=== PATIENT | male | born 1995 | race Two or more races ===

== ENCOUNTER 2022-10-03 19:59 | Inpatient (IN) | payer MEDICAID ==
[~2022-10-03] VITALS: Ht 162.6 cm; Wt 59.0 kg
--- NOTE | 2022-10-03 20:06 | NUR ---
SHIRAZ. Tamia LOWER LEG PAIN +DEFORMITY WHILE PLAYING SOCCER. 06/18 Pain level. VS stable.
--- NOTE | 2022-10-03 20:23 | NUR ---
SLAB INSPECTOR AT PT'S BEDSIDE
[2022-10-03] MEDS ORDERED: MORPHINE SULFATE INJ 4 MG/ML DISP.SYRIN ONE (20:30)
[2022-10-03] MEDS ORDERED: MORPHINE SULFATE INJ 2 MG/ML DISP.SYRIN IM/IV ONE (20:30)
--- NOTE | 2022-10-03 20:32 | NUR ---
DR HOLLIS ON THE PHONE WITH DR MCCRARY FOR ORTHO CONSULT
--- NOTE | 2022-10-03 20:32 | NUR ---
DR. LAW MOORE AT PT'S BEDSIDE FOR EVAL AND ASSESS LOWER EXTREMITY VIA DOPPLER.
--- NOTE | 2022-10-03 20:41 | NUR ---
COVID ANTIGEN SWAB COLLECTED AND SENT TO LAB
--- NOTE | 2022-10-03 20:55 | NUR ---
IV access established on RFA G#22, on SL, patent and no s/sx of infiltration. Pt tolerated procedure well.
--- NOTE | 2022-10-03 21:09 | NUR ---
Birthing Nurse at bedside
[2022-10-03 21:24] LABS: BASOPHILS % (AUTO) 0.2 % (0.0-2.0); EOSINOPHILS % (AUTO) 0.4 % (0.0-6.0); HEMATOCRIT 43 % (39-51); HEMOGLOBIN 13.9 g/dL (13.5-17.5); LYMPHOCYTES # (AUTO) 1.1 K/uL (0.8-4.8); LYMPHOCYTES % (AUTO) 8.2 % (20.0-44.0); MEAN CORPUSCULAR HGB CONC 33 g/dl (31.0-36.0); MEAN CORPUSCULAR VOLUME 92 fL (80-96); MONOCYTES # (AUTO) 0.6 K/uL (0.1-1.30); MONOCYTES % (AUTO) 4.3 % (2.0-12.0); NEUTROPHILS # (AUTO) 11.9 K/uL (1.8-8.9); NEUTROPHILS % (AUTO) 86.9 % (43.0-81.0); PLATELET COUNT (AUTO) 161 K/uL (150-450); RED BLOOD CELL COUNT(AUTO) 4.67 MIL/uL (4.5-6.0); WHITE BLOOD COUNT (AUTO) 13.6 K/uL (4.3-11.0)
--- NOTE | 2022-10-03 21:35 | NUR ---
PT TAKEN TO CT VIA AZAEL
--- NOTE | 2022-10-03 21:44 | NUR ---
Pt back to via chhaya
[2022-10-03 21:47] LABS: POTASSIUM 3.8 mmol/L (3.5-5.1)
--- NOTE | 2022-10-03 21:47 | NUR ---
epic panel paged
--- NOTE | 2022-10-03 22:16 | NUR ---
report given to judah mireles for miri
--- NOTE | 2022-10-03 22:29 | NUR ---
Pt transported to unit on [facility] with emt at bedside. pt in stable condition for transport.
--- NOTE | 2022-10-03 23:10 | NUR ---
MS FLAT LOCK MACHINE OPERATOR NOTES RECEIVED TELEPHONE REPORT FROM ER STAFF (JOBY). PT CAME TO UNIT VIA GURNEY. PT IS AWAKE, ALERT AND ORIENTED. A/O X4. STABLE ON RA. NO RESPIRATORY DISTRESS NOTED. VITALS TU=330/74, HR= 73, RESP =18, O2 SAT @ 98%. IV ACCESS AT LEFT FA #18, INTACT, FLUSHING WELL. SKIN ASSESSMENT DONE AND PICTURES TAKEN. SAFETY MEASURES GIVEN WITH BED ON LOWEST AND LOCKED POSITION. CALL LIGHT AND TABLE WITHIN REACH. WILL CONTINUE WITH PLAN OF CARE.
[2022-10-03] MEDS ORDERED: ONDANSETRON HCL/PF 4 MG/2 ML VIAL IVP PRN (23:30)
[2022-10-03] MEDS ORDERED: MAGNESIUM HYDROXIDE 30 ML UDC PO PRN (23:30)
[2022-10-03] MEDS ORDERED: ACETAMINOPHEN 325 MG TABLET PO PRN (23:30)
[2022-10-03] MEDS ORDERED: Z GUARD REMEDY 4 OZ OINT TP PRN (23:30)
[2022-10-03] MEDS ORDERED: ZOLPIDEM TARTRATE 5 MG TABLET PO PRN (23:30)
[2022-10-03] MEDS ORDERED: MAG HYDROX/AL HYDROX/SIMETH 30 ML UDC PO PRN (23:30)
[2022-10-04 00:10] VITALS: BP 142/68
[2022-10-04] MEDS: MORPHINE SULFATE INJ 4 MG/ML DISP.SYRIN IV PRN ×2 (00:49→08:54)
--- NOTE | 2022-10-04 00:50 | NUR ---
RN NOTES PATIENT VERBALIZED PAIN WITH 8 PAIN LEVEL. GAVE MORPHINE FOR SEVERE PAIN. WILL CONTINUE TO MONITOR.
[2022-10-04] MEDS: HYDROCODONE/APAP 5/325MG TABLET PO PRN ×3 (03:18→18:38)
--- NOTE | 2022-10-04 03:20 | NUR ---
RN NOTES PATIENT VERBALIZED PAIN WITH PAIN LEVEL 9. NORCO GIVEN. MORPHINE IS NOT DUE YET. WILL CONTINUE TO MONITOR.
--- NOTE | 2022-10-04 05:41 | NUR ---
EKG completed and results given to financial sales professional Grace.
[2022-10-04 05:49] LABS: BASOPHILS % (AUTO) 0.3 % (0.0-2.0); EOSINOPHILS % (AUTO) 0.9 % (0.0-6.0); HEMATOCRIT 41 % (39-51); HEMOGLOBIN 13.6 g/dL (13.5-17.5); LYMPHOCYTES # (AUTO) 1.3 K/uL (0.8-4.8); LYMPHOCYTES % (AUTO) 13.4 % (20.0-44.0); MEAN CORPUSCULAR HGB CONC 33 g/dl (31.0-36.0); MEAN CORPUSCULAR VOLUME 91 fL (80-96); MONOCYTES # (AUTO) 0.9 K/uL (0.1-1.30); MONOCYTES % (AUTO) 8.5 % (2.0-12.0); NEUTROPHILS # (AUTO) 7.7 K/uL (1.8-8.9); NEUTROPHILS % (AUTO) 76.9 % (43.0-81.0); PLATELET COUNT (AUTO) 160 K/uL (150-450); RED BLOOD CELL COUNT(AUTO) 4.48 MIL/uL (4.5-6.0)
[2022-10-04 06:24] LABS: CALCIUM, SERUM 9.1 mg/dL (8.5-10.1); CREATININE 1.1 mg/dL (0.6-1.3); MAGNESIUM 2.1 mg/dL (1.8-2.4); PHOSPHORUS 4.2 mg/dL (2.5-4.9); POTASSIUM 3.8 mmol/L (3.5-5.1)
--- NOTE | 2022-10-04 07:55 | NUR ---
MS RN CLOSING NOTES PATIENT IS AWAKE, ALERT AND ORIENTED. A/O X4. STABLE ON RA. NO RESPIRATORY DISTRESS NOTED. IV ACCESS AT LEFT FA #22, INTACT, FLUSHING WELL. SKIN ASSESSMENT DONE AND PICTURES TAKEN. PAIN MEDICATIONS GIVEN ACCORDINGLY. SAFETY MEASURES GIVEN WITH BED ON LOWEST AND LOCKED POSITION. CALL LIGHT AND TABLE WITHIN REACH. WILL ENDORSE TO THE NEXT SHIFT.
[2022-10-04 08:00] VITALS: BP 109/73
--- NOTE | 2022-10-04 08:09 | NUR ---
RN OPENING NOTE PATIENT AWAKE IN BED RESTING, A/O X 4. NO S/S OF PAIN NOTED AT THIS TIME. ON ROOM AIR, NO DISTRESS OR SHORTNESS OF BREATH NOTED. IV ACCESS RFA #22G, INTACT, PATENT AND FLUSHING WELL. FALL AND SAFETY MEASURES IN PLACE, BED ALARM ON, BED IN LOW AND LOCK POSITION, CALL LIGHT AND TABLE WITHIN EASY REACH, SIDE RAILS UP X2. WILL CONTINUE TO MONITOR.
[2022-10-04] MEDS ORDERED: ANESTHESIA TRAY IN PYXIS 1 EA TRAY MC ONE (14:11)
[2022-10-04] MEDS ORDERED: POLYMYXIN B SULFATE 0 UNITS ONE (14:11)
[2022-10-04] MEDS ORDERED: BUPIVACAINE 0.5 % PF 150 MG/30 ML VIAL ONE (14:11)
--- NOTE | 2022-10-04 14:48 | NUR ---
RN NOTE PATIENT IS NOT IN ROOM, PATIENT WAS TAKEN BY THE OR NURSE. PATIENT SCHEDULED FOR SURGERY WITH DR. MCCRARY @ 15:00 (LEFT TIBIA & FIBULA OPEN REDUCTION INTERNAL FIXATION WITH INTRAMEDULLARY NAIL).
[2022-10-04] MEDS ORDERED: ROCURONIUM BROMIDE 50 MG/5 ML ONE (14:54)
[2022-10-04] MEDS ORDERED: FENTANYL PF 250MCG/5ML AMPUL ONE ×2 (14:54→16:15)
[2022-10-04] MEDS ORDERED: BUPIVACAINE 0.25% 75 MG/30 ML VIAL ONE (15:11)
[2022-10-04] MEDS ORDERED: HYDROMORPHONE INJ 2 MG/ML DISP.SYRIN ONE (16:15)
[2022-10-04] MEDS ORDERED: HYDROGEN PEROXIDE 480 ML BOTTLE ONE (16:41)
--- NOTE | 2022-10-04 18:28 | NUR ---
RN NOTE PATIENT IS BACK IN ROOM, CAME BACK FROM SURGERY WITH DR. MCCRARY (LEFT TIBIA & FIBULA OPEN REDUCTION INTERNAL FIXATION WITH INTRAMEDULLARY NAIL), NO COMPLICATIONS DURING SURGERY. V/S TAKEN, STABLE, RECORDED. PATIENT IS IN ROOM RESTING, AT BED SIDE. PAIN LEVEL 8/10, PAIN MEDICATION WILL BE GIVEN, WILL CONTINUE TO MONITOR.
--- NOTE | 2022-10-04 18:55 | NUR ---
RN CLOSING NOTE PATIENT AWAKE IN BED RESTING, A/O X 4. 8/10 PAIN LEVEL, PAIN MEDICATIONS GIVEN. ON ROOM AIR, NO DISTRESS OR SHORTNESS OF BREATH NOTED. IV ACCESS RFA #22G, INTACT, PATENT AND FLUSHING WELL. FALL AND SAFETY MEASURES IN PLACE, BED ALARM ON, BED IN LOW AND LOCK POSITION, CALL LIGHT AND TABLE WITHIN EASY REACH, SIDE RAILS UP X2. ALL NEEDS ATTENDED AND ANTICIPATED. WILL ENDORSE TO RN CLINICAL NURSE.
[2022-10-04 18:58] VITALS: BP 143/89
--- NOTE | 2022-10-04 19:25 | NUR ---
noc rn opening received patient in bed, resting. s/p surgery. no s/s of apparent distress on room air. c/o 03/18 pain but already medicated, given ice packs at this time. Running ns @75mls/hr. Mother in room with patient. needs attended for now. call light within reach, encouraged patient with the use of call light. safety in place. will continue with the plan of care for patient.
[2022-10-04 20:44] VITALS: BP 128/71
[2022-10-04] MEDS: ENOXAPARIN SODIUM 40 MG/0.4 ML DISP.SYRIN SQ SCH (21:00)
--- NOTE | 2022-10-04 21:36 | NUR ---
noc rn note- non-admin Hold Lovenox 12 hour pos-op per call box wirer Tre. sched 2100 dose of lovenox non-admin for now.
[2022-10-04] MEDS: ANCEF 1 GM/50 ML D5W IV SCH ×2 (22:56)
[2022-10-05] MEDS: ANCEF 1 GM/50 ML D5W IV SCH ×2 (06:36)
--- NOTE | 2022-10-05 07:20 | NUR ---
MS RN OPENING NOTE PATIENT AWAKE IN BED, A/OX4, MOSTLY [place] SPEAKING BUT UNDERSTANDS BH[place], S/P ORIF L TIBIA-FIBULA, DRESSING IS C/D/I - PERFUSION GOOD ON THE DISTAL PART, NO NUMBNESS, REPORTS 5/10 PAIN, OFFERED PAIN MEDICATION BUT MENTIONED WILL HOLD OFF AND WILL ASK IF PAIN PERSISTS AFTER BREAKFAST. ON ROOM AIR, NO NOTED DISTRESS OR SHORTNESS OF BREATH. IV ACCESS RFA G#22 INTACT, PATENT AND FLUSHING WELL. FALL AND SAFETY MEASURES IN PLACE:BED IN LOWEST AND LOCKED POSITION, CALL LIGHT AND TRAY TABLE WITHIN EASY REACH, SIDE RAILS UP X2. WILL CONTINUE TO MONITOR.
[2022-10-05 08:08] VITALS: BP 116/67
[2022-10-05] MEDS: HYDROCODONE/APAP 5/325MG TABLET PO PRN ×4 (08:16→19:41)
--- NOTE | 2022-10-05 08:16 | NUR ---
PAIN MEDICATION - PATIENT REPORTS 5/10 LEFT LEG PAIN, NORCO 5 GIVEN PO, WILL CONTINUE TO MONITOR.
--- NOTE | 2022-10-05 08:45 | NUR ---
PT EVAL DONE - PATIENT WAS ABLE TO TOLERATE, WILL NEED CRUTCHES PER PT SARAH
[2022-10-05] MEDS ORDERED: HYDR-4303 PO ×2 (11:26→19:04)
--- NOTE | 2022-10-05 14:12 | NUR ---
PAIN MEDICATION - PATIENT REPORTS 7/10 LEFT LEG PAIN, NORCO 5 GIVEN PO, WILL CONTINUE TO MONITOR.
--- NOTE | 2022-10-05 14:45 | NUR ---
PATIENT REPORTS SUDDEN JERKING MOVEMENT COMING FROM THE LEG AND SUSTAINED PAIN OF 7/10. ELEVATED LEG AND APPLIED ICE. MD AWARE. WILL CONTINUE TO MONITOR.
--- NOTE | 2022-10-05 15:00 | NUR ---
RN NOTES - ACCIDENTALLY PULLED 2 TABLETS OF NORCO 5 FROM [employer] INSTEAD OF 1. CORRECT REMAINING # SHOULD BE 11. CALLED PHARMACY AND MENTIONED TO WAIT FOR CHARGE NURSE TO DO CYCLE. CHARGE NURSE WAS ON BREAK, WHILE WAITING ASKED CO-RN JUSTEN TO CO-SIGN THE RETURN OF THE EXTRA TABLET, WENT AHEAD AND ADMINISTERED 1 TABLET TO THE PATIENT AROUND 1412. WHEN CHARGE NURSE BUTCH CAME BACK, CYCLE COUNT WAS DONE AND NO DISCREPANCY NOTED.
--- NOTE | 2022-10-05 15:30 | NUR ---
RN NOTES - PATIENT REPORTS RELIEF OF ABOUT 3/10 PAIN. WILL CONTINUE TO MONITOR.
[2022-10-05 16:21] VITALS: BP 118/70
--- NOTE | 2022-10-05 18:28 | NUR ---
MS RN CLOSING NOTE PATIENT AWAKE IN BED WITH SISTER AND BROTHER IN LAW AT BEDSIDE, A/OX4, ABLE TO MAKE NEEDS KNOWN, SURGICAL DRESSING C/D/I, NO BLEEDING NOTED, PERFUSION GOOD ON THE DISTAL PART, NO NUMBNESS, + PULSES AND INTACT SENSATION. ELEVATED AND ICE PLACED OVER. EFFECTIVE PER PATIENT, REFUSED PAIN MEDICATION AT THIS TIME. ON ROOM AIR, NO NOTED DISTRESS OR SHORTNESS OF BREATH. IV ACCESS RFA G#22 INTACT, PATENT AND FLUSHING WELL. ALL NEEDS MET, ALL DUE MEDS GIVEN.FALL AND SAFETY MEASURES MAINTAINED: BED IN LOWEST AND LOCKED POSITION, CALL LIGHT AND TRAY TABLE WITHIN EASY REACH, SIDE RAILS UP .WILL ENDORSE TO [facility]COM[facility] CENTER AGENT NURSE.
[2022-10-05] MEDS ORDERED: ENOX40DI SQ (19:04)
--- NOTE | 2022-10-05 19:20 | NUR ---
bam rn opening received patient in bed, a/ox4. no s/s of apparent distress on room air. c/o 5/10 pain at this time--given ice pack for now, will medicate. 2 family members in room with patient. needs attended for now. call light within reach, encouraged patient with the use of call light. safety in place. will continue with the plan of care for patient. Addendum: 10/05/22 at 1999 by EDU MCKEE RN bam rn opening received patient in bed, a/ox4. no s/s of apparent distress on room air. c/o 5/10 pain at this time--given ice pack for now, will medicate. 2 family members in room with patient. needs attended for now. Dressing clean, dry, intact and leg elevated. call light within reach, encouraged patient with the use of call light. safety in place. will continue with the plan of care for patient.
--- NOTE | 2022-10-05 19:44 | NUR ---
noc rn note patient c/o 5/10 pain on his L. leg with facial grimacing. Given [place] 5 as ordered PRN.
[2022-10-05 20:00] VITALS: BP 130/62
[2022-10-05] MEDS: ENOXAPARIN SODIUM 40 MG/0.4 ML DISP.SYRIN SQ SCH (21:02)
[2022-10-05] MEDS ORDERED: HYDR-3972 PO (21:03)
[2022-10-06] MEDS: HYDROCODONE/APAP 5/325MG TABLET PO PRN ×2 (02:48→09:00)
--- NOTE | 2022-10-06 02:50 | NUR ---
noc rn note patient c/o 7/10 throbbing pain in his Left leg sx site, with facial grimacing Given [place] 5 as ordered PRN.
--- NOTE | 2022-10-06 06:43 | NUR ---
noc rn closing note patient sleeping comfortably in bed at this time. no s/s of apparent distress. pain managed with medications. discharge order in place. patient teaching done about prescribed home medication use, risk and benefits. Also the importance to f/u with Dr. Paz in 10 days. patient state acknowledgement. will endorse to morning shift rn.
--- NOTE | 2022-10-06 07:07 | NUR ---
MS RN OPENING NOTES RECEIVED PATIENT RESTING IN BED, A/Ox4, ON ROOM AIR. NO S/S OF RESPIRATORY DISTRESS. PATIENT HAS IV ACCESS R FA #22 S/L. INTACT AND PATENT. SKIN ISSUES: L ANKLE SPLINT. PATIENT IS NWB USING CRUTCHES. NO C/O OF PAIN OR DISCOMFORT. SAFETY MEASURES IN PLACE: BED LOCKED AND IN LOWEST POSITION, HOB ELEVATED, SIDE RAILS UPx2, CALL LIGHT WITHIN REACH WILL CONTINUE TO MONITOR.
[2022-10-06 08:00] VITALS: BP 130/66
--- NOTE | 2022-10-06 10:00 | NUR ---
RN NOTES PATIENT REQUESTED PAIN MEDICATION FOR PAIN 03/18, PRN NARCO ADMINISTERED. PATIENT IS DOWN TO A 3/10. WILL CONTINUE TO MONITOR.
[2022-10-06] MEDS ORDERED: APIX5TAB4 PO (14:06)
[2022-10-06] MEDS ORDERED: APIX5TAB PO (14:06)
[2022-10-06 16:00] VITALS: BP 133/76
== END 2022-10-06 16:54 | disposition home or self-care (01) | DRG 313 ==
LOC: ER 20:01 → MED 22:05
PROVIDERS: ADMIT Nurse Practitioner Acute Care; ATTEND Nurse Practitioner Acute Care
PROC: 0QSH06Z Reposition Left Tibia with Intramedullary Internal Fixation Device, Open Approach (ICD-10-PCS; principal; 2022-10-04)
DX: S89.102A Unspecified physeal fracture of lower end of left tibia, initial encounter for closed fracture (principal); D68.59 Other primary thrombophilia; I82.412 Acute embolism and thrombosis of left femoral vein; S82.832A Other fracture of upper and lower end of left fibula, initial encounter for closed fracture; D72.829 Elevated white blood cell count, unspecified; Z74.09 Other reduced mobility; V00.131A Fall from skateboard, initial encounter; Y92.322 Soccer field as the place of occurrence of the external cause; S89.302A Unspecified physeal fracture of lower end of left fibula, initial encounter for closed fracture; W21.02XA Struck by soccer ball, initial encounter; Y93.66 Activity, soccer
CPT/HCPCS: 36415; 71045-TC; 73590-TC; 73700-TC; 80048-TC; 83735-TC; 84100-TC; 85025-TC; 85730-TC; 86850-TC; 87081-TC; 93970-TC; 97112-TC; 97116-TC; 97530-TC; A4217; A6209; A6253; C1713; C9803; G0378; J0330; J0690; J1100; J1170; J1650; J2270; J2405; J2704; J3010; J3490; J7030; J7050; J7060